=== PATIENT | female | born 1945 | race Caucasian/White ===

== ENCOUNTER → 2016-05-13 20:08 | Outpatient (CLI) | payer MEDICARE, OTHER ==
[2016-05-08 10:58] VITALS: BMI 24.0
[~2016-05-13 20:08] MED LIST: BENTYL10 MG PO; CALCIUM 600 +1 EAC3 PO; CARAFATE1 G PO; CENTRUM COMPLE1 EACH PO; CO Q-10200 MG PO; ELAVIL25 MG PO; FERRO SEQUELS; FISH OIL 1,2001 CAP PO; FLAXSEED OIL1000 MG; IMITREX100 MG PO; OMEPRAZOLE40 MG PO; OSTEO BI-FLEX1 EAC1 PO; PLAVIX75 MG PO; PRAVACHOL40 MG PO; SYNTHROID88 MCG PO; VITAMIN B COMPL1 TAB PO; VITAMIN C1000 MG PO; VITAMIN D31000 UNI2 PO
[2016-05-13 21:53] LABS: T4 THYROXIN - FREE 1.21 ng/dL (0.76-1.46); THYROID STIMULATING HORMONE 0.72 uIU/mL (0.36-3.74)
== END | disposition home or self-care (01) ==
LOC: D.LABREF 20:08
PROVIDERS: Internal Medicine Gastroenterology
DX: K21.0 Gastro-esophageal reflux disease with esophagitis (principal); R14.0 Abdominal distension (gaseous); T18.2XXA Foreign body in stomach, initial encounter

== ENCOUNTER → 2016-05-21 10:50 | Outpatient (CLI) | payer MEDICARE, OTHER ==
[2016-05-08 10:58] VITALS: BMI 24.0
== END | disposition home or self-care (01) ==
LOC: D.NM 05-15 11:30
DX: R10.9 Unspecified abdominal pain (principal); K21.0 Gastro-esophageal reflux disease with esophagitis

== ENCOUNTER 2016-11-05 07:24 | Emergency (ER) | payer MEDICARE, OTHER ==
[2016-05-08 10:58] VITALS: BMI 24.0
== END 2016-11-05 09:20 | disposition home or self-care (01) ==
LOC: D.ER 07:24
DX: M54.2 Cervicalgia (principal)

== ENCOUNTER 2016-11-08 09:22 | Inpatient (IN) | payer MEDICARE, OTHER ==
[~2016-11-08] VITALS: Ht 161.5 cm; Wt 65.8 kg
[2016-11-08 10:58] LABS: BASOPHILS 0.1 % (0-2); EOSINOPHILS 0 % (0-7); HEMATOCRIT 36.7 % (36.0-48.0); HEMOGLOBIN 12.3 g/dL (12-16); IMMATURE GRANULOCYTES 0.4 % (0-5); LYMPHOCYTES 6.2 % (15-50); MCH 31.3 pg (26.0-34.0); MCHC 33.5 g/dL (31.0-37.0); MCV 93.4 fL (80.0-100.0); MEAN PLATELET VOLUME 8.6 fL (7.4-10.4); MONOCYTES 10.3 % (2-11); PLATELET COUNT 316 10x3/uL (130-400); RBC 3.93 10x6/uL (4.00-5.40); RDW 11.7 % (11.5-14.5)
[2016-11-08 11:12] LABS: ALBUMIN 2.5 g/dL (3.4-5.0); ALKALINE PHOSPHATASE 138 U/L (46-116); ALT (SGPT) 14 U/L (10-68); CALC OSMOLALITY 260 mosm/kg (275-300); CALCIUM 9.7 mg/dL (8.5-10.1); CARBON DIOXIDE 29.8 mmol/L (21.0-32.0); CHLORIDE - SERUM 93 mmol/L (98-107); CREATININE - SERUM 0.7 mg/dL (0.6-1.3); GLUCOSE 115 mg/dL (74-106); PROTEIN - SERUM 7.6 g/dL (6.4-8.2); SODIUM 129 mmol/L (136-145); UREA NITROGEN 14 mg/dL (7-18); eGFR NON AFRICAN AMERICAN 88 mL/min (90-120)
[2016-11-08 11:17] LABS: TROPONIN-I < 0.017 ng/mL (0.000-0.060)
[2016-11-08 11:34] LABS: APPEARANCE CLEAR (CLEAR); BILIRUBIN NEGATIVE (NEGATIVE); COLOR DK YELLOW (YELLOW); GLUCOSE 50 mg/dL (NEGATIVE); KETONE MODERATE mg/dL (NEGATIVE); LEUKOCYTE ESTERASE TRACE (NEGATIVE); NITRITE NEGATIVE (NEGATIVE); PROTEIN 2+ mg/dL (NEGATIVE); UROBILINOGEN NORMAL (NORMAL)
[2016-11-08 11:39] LABS: BACTERIA FEW /hpf (NONE SEEN); EPITHELIAL CELLS 0-5 /hpf (0-5); RED CELLS - URINE 0-5 /hpf (0-5); WHITE CELLS - URINE 0-5 /hpf (0-5)
[2016-11-08 11:41] LABS: MUCUS <1+ /lpf (NONE SEEN)
[2016-11-08 16:00] VITALS: BP 159/95
[2016-11-08] MEDS ORDERED: REGLAN10 MG PO (17:34)
[2016-11-08] MEDS ORDERED: CARAFATE1 G/10 ML PO (17:35)
[2016-11-08 17:41] LABS: CKMB 0.8 U/L (0.0-3.6); CREATINE KINASE 80 UL (21-215); TROPONIN-I < 0.017 ng/mL (0.000-0.060)
[2016-11-08] MEDS ORDERED: VALIUM10 MG PO (17:47)
[2016-11-08] MEDS ORDERED: DILAUDID2 MG PO (17:48)
[2016-11-08 17:57] VITALS: BP 159/95; BMI 25.2
--- NOTE | 2016-11-08 19:00 | NUR ---
PATIENT SLEEPING SUPINE IN BED. HOB 30 DEGREES. RR EVEN AND UNLABORED. O2 @ 2L VIA NC. 0 S/S OF DISTRESS. IV TO RIGHT HAND PATENT WITH NO REDNESS OR SWELLING. SRX2. BED LOW. CALL LIGHT WITHIN REACH.
[2016-11-08 20:00] VITALS: BP 137/79
--- NOTE | 2016-11-08 21:30 | NUR ---
PATIENT C/O NEEDING TO VOID. UNABLE ON BED TOBIAS. PATIENT STATED HER "PUT HER IN THE FLOOR TO PEE," AND ASKED IF I WOULD. BLADDER SCAN SHOWED >770ML. INSERTED 16FR HERMAN CATHETER PER TELEPHONE ORDER BY DR. ZIMMER AND COLLECTED UA AND CULTURE.
[2016-11-08 21:47] LABS: APPEARANCE CLEAR (CLEAR); BILIRUBIN NEGATIVE (NEGATIVE); GLUCOSE 50 mg/dL (NEGATIVE); KETONE SMALL mg/dL (NEGATIVE); LEUKOCYTE ESTERASE NEGATIVE (NEGATIVE); NITRITE NEGATIVE (NEGATIVE); PROTEIN NEGATIVE (NEGATIVE); SPECIFIC GRAVITY 1.015 (1.005-1.020); UROBILINOGEN NORMAL (NORMAL)
--- NOTE | 2016-11-08 22:00 | NUR ---
PATIENT GIVEN BATH AND REPOSITIONED TO RIGHT SIDE.
[2016-11-08 23:36] LABS: CKMB 0.6 U/L (0.0-3.6); CREATINE KINASE 70 UL (21-215)
[2016-11-08 23:37] LABS: TROPONIN-I < 0.017 ng/mL (0.000-0.060)
[2016-11-09] VITALS: BP 133/75
[2016-11-09 04:00] VITALS: BP 146/80
[2016-11-09 05:20] LABS: CREATINE KINASE 79 UL (21-215); TROPONIN-I < 0.017 ng/mL (0.000-0.060)
--- NOTE | 2016-11-09 07:35 | NUR ---
RESITNG, AT BEDSIDE, DENIES NEEDS, BED LOWEST POSITON, CALL LIGHT IN REACH, WILL CONTINUE TO MONITOR
[2016-11-09 09:35] VITALS: BP 135/82
--- NOTE | 2016-11-09 11:30 | NUR ---
PATIENT IN LOW JACOBO POSITION RESTING QUIETLY. NO SIGNS OF DISTRESS NOTED. SIDE RAILS UP X2. BED IN LOW POSITION. CALL LIGHT IN REACH.
[2016-11-09 11:49] VITALS: BP 133/82
--- NOTE | 2016-11-09 13:55 | NUR ---
Is the patient Alert and Oriented? Yes 0 * How many steps to enter\exit or inside your home? none 0 * PCP Aime 0 * [facility] 0 * Preadmission Environment Home with Family 0 * ADLs Independent 0 * Equipment Shower Chair 0 * Other Equipment no additional DME 0 * List name and contact numbers for known caregivers / representatives who currently or will assist patient after discharge: Carlos Zarate- [phone] * Community resources currently utilized None 0 * Please name any agencies selected above. N/A 0 * Additional services required to return to the preadmission environment? No 0 * Can the patient safely return to the preadmission environment? Yes 0 * Has this patient been hospitalized within the prior 30 days at any hospital? No 0
--- NOTE | 2016-11-09 14:11 | NUR ---
Patient plans to return to home at discharge w/ her . The , Carlos Zarate, will provide transportation at discharge. There are no stairs or steps to enter the home. She was independent prior to admission. Has a shower chair and no other DME. PCP-Aime Moore- Jessie in [facility] CM will follow to assist as is appropriate for discharge planning needs.
[2016-11-09 16:29] VITALS: BP 114/64
--- NOTE | 2016-11-09 19:00 | NUR ---
PATIENT SLEEPING SUPINE IN BED. HOB 30 DEGREES. LETHARGIC BUT RESPONDS TO VOICE. O2 @ 2L VIA NC. STATES PAIN IS A 10/10. IV TO RIGHT HAND PATENT WITH NO REDNESS OR SWELLING. HERMAN SECURED WITH STATLOCK AND DRAINING TO GRAVITY. SRX2. BED LOW. CALL LIGHT WITHIN REACH.
[2016-11-09 20:00] VITALS: BP 136/73
--- NOTE | 2016-11-09 20:00 | NUR ---
FED PATIENT DINNER TRAY. SHE ATE ABOUT 5 BITS OF THE DINNER AND THE ENTIRE DESSERT.
--- NOTE | 2016-11-09 23:00 | NUR ---
NIGHTTIME MEDICATIONS ADMINISTERED. NO NEEDS AT THIS TIME.
[2016-11-10] VITALS: BP 135/75
[2016-11-10 04:00] VITALS: BP 142/68
[2016-11-10 05:39] LABS: BASOPHILS 0.1 % (0-2); EOSINOPHILS 0.2 % (0-7); HEMATOCRIT 32.3 % (36.0-48.0); HEMOGLOBIN 10.8 g/dL (12-16); IMMATURE GRANULOCYTES 0.2 % (0-5); LYMPHOCYTES 9.3 % (15-50); MCH 30.6 pg (26.0-34.0); MCHC 33.4 g/dL (31.0-37.0); MCV 91.5 fL (80.0-100.0); MEAN PLATELET VOLUME 8.7 fL (7.4-10.4); MONOCYTES 9.4 % (2-11); NEUTROPHILS 80.8 % (40-80); RBC 3.53 10x6/uL (4.00-5.40); RDW 11.7 % (11.5-14.5)
[2016-11-10 05:40] LABS: PLATELET COUNT 380 10x3/uL (130-400); WBC 12.2 10x3/uL (4.8-10.8)
[2016-11-10 05:53] LABS: HEMOGLOBIN A1C 5.4 % (4.8-6.0)
[2016-11-10 06:12] LABS: ALBUMIN 1.9 g/dL (3.4-5.0); ALKALINE PHOSPHATASE 138 U/L (46-116); ALT (SGPT) 14 U/L (10-68); BILIRUBIN - TOTAL 0.37 mg/dL (0.2-1.3); CALC OSMOLALITY 269 mosm/kg (275-300); CALCIUM 9.1 mg/dL (8.5-10.1); CARBON DIOXIDE 28.4 mmol/L (21.0-32.0); CHLORIDE - SERUM 98 mmol/L (98-107); CREATININE - SERUM 0.6 mg/dL (0.6-1.3); GLUCOSE 127 mg/dL (74-106); MAGNESIUM - SERUM 1.8 mg/dL (1.8-2.4); PROTEIN - SERUM 6.6 g/dL (6.4-8.2); SODIUM 134 mmol/L (136-145); THYROID STIMULATING HORMONE 2.34 uIU/mL (0.36-3.74); UREA NITROGEN 12 mg/dL (7-18); eGFR NON AFRICAN AMERICAN > 90 mL/min (90-120)
[2016-11-10 06:14] LABS: POTASSIUM - SERUM 3.2 mmol/L (3.5-5.1)
[2016-11-10 06:23] LABS: C-REACTIVE PROTEIN 34.8 mg/dL (0.0-0.9)
--- NOTE | 2016-11-10 07:41 | NUR ---
SLEEPING, BREATHING EVEN UNLABORED, CALL LIGHT IN REACH, WILL CONTINUE TO MONITOR
[2016-11-10 09:30] VITALS: BP 125/76
--- NOTE | 2016-11-10 09:30 | NUR ---
PATIENT IN LOW JACOBO POSITION RESTING QUIETLY WITH EYES CLOSED. RESPIRATIONS EVEN AND UNLABORED. FAMILY AT BEDSIDE. SIDE RAILS UP X2. BED IN LOW POSITION. CALL LIGHT IN REACH.
[2016-11-10 11:02] LABS: APPEARANCE CLEAR (CLEAR); COLOR ST (YELLOW); GLUCOSE NEGATIVE (NEGATIVE); LEUKOCYTE ESTERASE NEGATIVE (NEGATIVE); NITRITE NEGATIVE (NEGATIVE); PROTEIN NEGATIVE (NEGATIVE)
[2016-11-10 11:03] LABS: BACTERIA FEW /hpf (NONE SEEN); BILIRUBIN NEGATIVE (NEGATIVE); EPITHELIAL CELLS 0-5 /hpf (0-5); KETONE LARGE mg/dL (NEGATIVE); UROBILINOGEN NORMAL (NORMAL); WHITE CELLS - URINE 0-5 /hpf (0-5)
[2016-11-10 11:04] LABS: MUCUS <1+ /lpf (NONE SEEN)
--- NOTE | 2016-11-10 13:00 | NUR ---
SITTING UP, FEEDING SELF LUNCH, DENIES NEEDS, BED LOWEST POSITION, CALL LIGHT IN REACH
[2016-11-10 13:54] VITALS: BP 120/74
[2016-11-10 16:23] VITALS: BP 120/70
--- NOTE | 2016-11-10 19:00 | NUR ---
PATIENT SLEEPING SUPINE IN BED. HOB 30 DEGREES. RR EVEN AND UNLABORED. 0 S/S OF DISTRESS. IV TO RIGHT HAND PATENT WITH NO REDNESS OR SWELLING. HERMAN SECURED WITH STATLOCK AND DRAINING TO GRAVITY. SCD'S ON. SRX2. BED LOW. CALL LIGHT WITHIN REACH.
[2016-11-10 20:00] VITALS: BP 137/73
--- NOTE | 2016-11-10 22:40 | NUR ---
NIGHTTIME MEDICATIONS ADMINISTERED. REPOSITIONED PATIENT TO RIGHT SIDE.
[2016-11-11] VITALS: BP 137/78
--- NOTE | 2016-11-11 | NUR ---
PATIENT HAD BM WITH SMALL AMOUNT OF RAFAEL BLOOD. WILL PASS ON IN REPORT.
--- NOTE | 2016-11-11 00:15 | NUR ---
IMITREX GIVEN FOR HEADACHE. WILL REASSESS.
[2016-11-11 04:00] VITALS: BP 149/84
[2016-11-11 05:46] LABS: BASOPHILS 0.2 % (0-2); EOSINOPHILS 1.5 % (0-7); HEMATOCRIT 32.6 % (36.0-48.0); HEMOGLOBIN 10.9 g/dL (12-16); IMMATURE GRANULOCYTES 0.4 % (0-5); LYMPHOCYTES 14.6 % (15-50); MCH 30.9 pg (26.0-34.0); MCHC 33.4 g/dL (31.0-37.0); MCV 92.4 fL (80.0-100.0); MEAN PLATELET VOLUME 8.8 fL (7.4-10.4); MONOCYTES 10.5 % (2-11); NEUTROPHILS 72.8 % (40-80); PLATELET COUNT 381 10x3/uL (130-400); RBC 3.53 10x6/uL (4.00-5.40); RDW 11.7 % (11.5-14.5)
[2016-11-11 06:14] LABS: ALBUMIN 1.7 g/dL (3.4-5.0); ALKALINE PHOSPHATASE 154 U/L (46-116); ALT (SGPT) 16 U/L (10-68); CALCIUM 9.1 mg/dL (8.5-10.1); CARBON DIOXIDE 27.6 mmol/L (21.0-32.0); CHLORIDE - SERUM 96 mmol/L (98-107); CREATININE - SERUM 0.6 mg/dL (0.6-1.3); GLUCOSE 128 mg/dL (74-106); POTASSIUM - SERUM 3.3 mmol/L (3.5-5.1); PROTEIN - SERUM 6.4 g/dL (6.4-8.2); SODIUM 132 mmol/L (136-145); eGFR NON AFRICAN AMERICAN > 90 mL/min (90-120)
[2016-11-11 06:15] LABS: CALC OSMOLALITY 264 mosm/kg (275-300); UREA NITROGEN 7 mg/dL (7-18)
[2016-11-11 08:06] VITALS: BP 149/87
--- NOTE | 2016-11-11 08:14 | NUR ---
SITTING UP IN BED EATING BREAKFAST, AT BEDSIDE, CALL FRANCESCAT IN REACH, DENIES NEEDS, WILL CONTINUE TO MONITOR
--- NOTE | 2016-11-11 08:50 | NUR ---
PATIENT ALERT IN BED WITH PRIMARY NURSE MICHAEL BARBOSA AND FAMILY PRESENT. SIDE RAILS UP X2. BED IN LOW POSITION. CALL LIGHT IN REACH.
--- NOTE | 2016-11-11 10:24 | NUR ---
Rehab Prescreening Consult recieved and the chart has been reviewed. Her AMS seems to be medication related and is slowly clearing per Dr Connolly's notes. The RTC tear does not meet criteria for acute in-patient rehab. Spoke to the CM Mary Ann masterson this. Thank you for the referral. Sita Herrera RN Clinical Liaison, Rehab
[2016-11-11 12:27] VITALS: BP 155/86
[2016-11-11 14:27] VITALS: Ht 161.5 cm; Wt 65.8 kg
[2016-11-11 15:52] VITALS: BP 131/78
[2016-11-11 20:00] VITALS: BP 131/68
[2016-11-12] VITALS: BP 130/81
[2016-11-12 04:00] VITALS: BP 136/82
[2016-11-12 05:15] LABS: BASOPHILS 0.3 % (0-2); EOSINOPHILS 1.2 % (0-7); HEMATOCRIT 29.5 % (36.0-48.0); HEMOGLOBIN 10.3 g/dL (12-16); IMMATURE GRANULOCYTES 0.8 % (0-5); LYMPHOCYTES 15.8 % (15-50); MCH 32.2 pg (26.0-34.0); MCHC 34.9 g/dL (31.0-37.0); MCV 92.2 fL (80.0-100.0); MEAN PLATELET VOLUME 8.4 fL (7.4-10.4); MONOCYTES 11.5 % (2-11); NEUTROPHILS 70.4 % (40-80); PLATELET COUNT 389 10x3/uL (130-400); RDW 11.6 % (11.5-14.5); WBC 11.6 10x3/uL (4.8-10.8)
[2016-11-12 05:39] LABS: CALC OSMOLALITY 266 mosm/kg (275-300); CALCIUM 8.8 mg/dL (8.5-10.1); CARBON DIOXIDE 29.9 mmol/L (21.0-32.0); CHLORIDE - SERUM 97 mmol/L (98-107); CREATININE - SERUM 0.5 mg/dL (0.6-1.3); GLUCOSE 130 mg/dL (74-106); POTASSIUM - SERUM 3.3 mmol/L (3.5-5.1); SODIUM 133 mmol/L (136-145); eGFR NON AFRICAN AMERICAN > 90 mL/min (90-120)
[2016-11-12 05:46] LABS: UREA NITROGEN 10 mg/dL (7-18)
--- NOTE | 2016-11-12 07:50 | NUR ---
ASSESSMENT PER FLOW SHEET.PT WITHOUT DISTRESS. AT BEDSIDE.CALL LIGHT IN REACH
[2016-11-12 08:26] VITALS: BP 157/91
--- NOTE | 2016-11-12 09:39 | NUR ---
Patient Name: JOSE M RIVAS Admission Status: ER Accout number: [id number] Admission Date: 11-10-2016 : 1945 Admission Diagnosis:PAIN IN LEFT SHOULDER Attending: XAVIER Current LOS: 2 Anticipated DC Date: Planned Disposition: Home Primary Insurance: MEDICARE A & B Discharge Planning Comments: CM met with patient and to talk about a rehab to get stronger. Pt JOHANNA for either [facility] or [facility] because that is where they live. Referral sent to [facility] and a call into [facility] CM is waiting to hear back from rehab facilities. Bonsai Tender: Lisbeth Fritz
--- NOTE | 2016-11-12 10:47 | NUR ---
Spoke with Carissa at [facility] and she stated that she received the referral. Waiting on placement.
[2016-11-12 12:46] VITALS: BP 124/71
--- NOTE | 2016-11-12 13:57 | NUR ---
DR ZIMMER NOTIFIED THAT THE PATIENT HAS BEEN ACCEPTED AT [facility] DISCHARGE ORDER RECEIVED AND GRISELDA AT [facility] NOTIFIED [facility] HAS ACCEPTED PATIENT AND WILL BE SENDING A VAN PATIENT BEING DISCHARGED TO A SKILLED BED.
[2016-11-12] MEDS ORDERED: ACETAMINOPHEN325 MG PO (14:07)
--- NOTE | 2016-11-12 14:30 | NUR ---
PT DRESSED AND DISCHARGE PAPERS SIGNED BY .WLL DC TO [facility] IN AM APROX 1030.DISCHARGE HELD TODAY.SEE CASE MANAGEMENT NOTES
--- NOTE | 2016-11-12 14:59 | NUR ---
Received call from Carissa at [facility] stating that they can not accept patient till tomorrow. Carissa gave me a milk pickup driver time for 11/13/16 @ 10:30 am. Spouse notified. Nursing can call report to [phone].
[2016-11-12 16:11] VITALS: BP 146/85
--- NOTE | 2016-11-12 18:13 | NUR ---
REMAINS WITHOUT NEEDS,WITHOUT CHANGE FROM INITIAL SHIFT ASSESSMENT.CONT PLAN OF CARE
[2016-11-12 20:00] VITALS: BP 116/65
--- NOTE | 2016-11-12 20:34 | NUR ---
REC'D. IN BED EYES CLOSED RESP. DEEP AND EVEN.OFF GOING NURSE STATES HAS HAD SOME CONFUSION ALL DAY. BOX ALARM INTACT. WILL CONTINUE TO MONITOR FOR ANY CHGES. AND FOLLOW CURRENT PLAN OF CARE.
[2016-11-13] VITALS: BP 108/62
--- NOTE | 2016-11-13 00:43 | NUR ---
ASSESSED PT REMAINS IN ISOLATION. SITTING UP IN BED AT 30 DEGREES WITH EASY RESPIRATIONS AND NO DISTRESS NOTED. URINAL AT THE BEDSIDE. BED IS LOW, RAILS UP X'S 2 WITH THE CALL LIGHT AT HAND.
--- NOTE | 2016-11-13 00:47 | NUR ---
ASSESSED, PT IS ASLEEP WITH EASY RESPIRATIONS AND NO DISTRESS NOTED. STILL ON FLUID RESTRICTION OF 500 CC. BED IS LOW, RAILS UP X'S 2 WITH THE CALL LIGHT AT HAND.
[2016-11-13 04:00] VITALS: BP 110/77
[2016-11-13 05:16] LABS: BASOPHILS 0.4 % (0-2); EOSINOPHILS 4.2 % (0-7); HEMATOCRIT 30.9 % (36.0-48.0); HEMOGLOBIN 10.2 g/dL (12-16); IMMATURE GRANULOCYTES 0.4 % (0-5); LYMPHOCYTES 20.6 % (15-50); MCH 30.8 pg (26.0-34.0); MCV 93.4 fL (80.0-100.0); MEAN PLATELET VOLUME 8.5 fL (7.4-10.4); MONOCYTES 8.7 % (2-11); NEUTROPHILS 65.7 % (40-80); PLATELET COUNT 424 10x3/uL (130-400); RBC 3.31 10x6/uL (4.00-5.40); RDW 11.9 % (11.5-14.5); WBC 11.2 10x3/uL (4.8-10.8)
[2016-11-13 05:23] LABS: CALC OSMOLALITY 266 mosm/kg (275-300); CALCIUM 9.1 mg/dL (8.5-10.1); CARBON DIOXIDE 31.2 mmol/L (21.0-32.0); CHLORIDE - SERUM 97 mmol/L (98-107); CREATININE - SERUM 0.6 mg/dL (0.6-1.3); GLUCOSE 118 mg/dL (74-106); POTASSIUM - SERUM 3.2 mmol/L (3.5-5.1); SODIUM 133 mmol/L (136-145); eGFR NON AFRICAN AMERICAN > 90 mL/min (90-120)
[2016-11-13 05:26] LABS: UREA NITROGEN 13 mg/dL (7-18)
[2016-11-13 07:37] VITALS: BP 118/76
--- NOTE | 2016-11-13 07:45 | NUR ---
ASSESSMENT PER FLOW SHEET.PT WITHOUT DISTRESS.FALL PREVENTION IN PLACE WITH BOX ALARM ON AND FUNCTIONING.DOOR OPEN TO MONITOR.CALL LIGHT IN REACH
--- NOTE | 2016-11-13 09:30 | NUR ---
CM spoke with , IMM served. Patient will be discharged today to [facility] to [facility] skilled bed via their van. at bedside and aware of the discharge. denies any other CM needs.
--- NOTE | 2016-11-13 11:40 | NUR ---
CALL TO [facility],REPORT GIVEN TO GRISELDA MORRIS
--- NOTE | 2016-11-13 12:13 | NUR ---
LEFT UNIT VIA WHEELCHAIR FOR TRANSPORT TO [facility]
--- NOTE | 2016-11-13 13:35 | NUR ---
PATIENT DISCHARGED VIA [facility] A [facility] BED
== END 2016-11-13 12:13 | DRG 558 ==
LOC: D.ER 09:22 → OBSVTIME 12:59 → D.MS 12:59
PROVIDERS: Family Medicine; ADMIT Family Medicine
PROC: 0T9B70Z Drainage of Bladder with Drainage Device, Via Natural or Artificial Opening (ICD-10-PCS; principal; 2016-11-08)
DX: M75.102 Unspecified rotator cuff tear or rupture of left shoulder, not specified as traumatic (principal); E87.1 Hypo-osmolality and hyponatremia; J98.11 Atelectasis; N39.0 Urinary tract infection, site not specified; T40.2X5A Adverse effect of other opioids, initial encounter; T42.4X5A Adverse effect of benzodiazepines, initial encounter; R41.82 Altered mental status, unspecified; R53.1 Weakness; K31.84 Gastroparesis; R33.9 Retention of urine, unspecified

== ENCOUNTER → 2017-06-15 17:14 | Outpatient (CLI) | payer MEDICARE, OTHER ==
[2016-11-11 14:27] VITALS: BMI 25.2
[~2017-06-15 17:14] MED LIST changes: +ACETAMINOPHEN325 MG PO; +CARAFATE1 G/10 ML PO; +DILAUDID2 MG PO; +REGLAN10 MG PO; +VALIUM10 MG PO
== END | disposition home or self-care (01) ==
LOC: D.MAMMO 04-19 11:45
DX: Z12.31 Encounter for screening mammogram for malignant neoplasm of breast (principal)

== ENCOUNTER → 2018-07-28 18:00 | Outpatient (CLI) | payer MEDICARE, OTHER ==
[2016-11-11 14:27] VITALS: BMI 25.2
== END | disposition home or self-care (01) ==
LOC: D.MAMMO 15:45
PROVIDERS: ATTEND Family Medicine
DX: Z12.31 Encounter for screening mammogram for malignant neoplasm of breast (principal)